=== PATIENT | female | born 1940 | race Caucasian/White ===

== ENCOUNTER 2021-11-23 13:26 | Inpatient (IN) ==
[2021-11-23] MEDS ORDERED: NS 0.9% 1000 ml BAG 1,000 ML IV ONE (13:37)
[2021-11-23 13:59] LABS: ABS Lymphocytes 1.3 10^3/ul (1.0-4.8); ABS Monocytes 0.4 10^3/ul (0-0.8); ABS Neutrophils 6.3 10^3/ul (1.5-7.7); Eosinophil % 0.3 %; Hematocrit 46 % (35-47); Hemoglobin 15.8 g/dL (12.0-16.0); Lymphocyte % 16.5 %; Mean Corpuscular HGB Conc 35 g/dL (31-36); Mean Corpuscular Hemoglobin 32 pg (27-31); Mean Corpuscular Volume 93 fL (80-97); Mean Platelet Volume 7.3 fL (7.4-10.4); Platelet Count 249 10^3/uL (150-450); Red Blood Count 4.91 10^6 /uL (3.70-4.87); Red Cell Distribution Width 14 % (10-15)
[2021-11-23] MEDS ORDERED: Iodixanol (CONTRAST) 320 MG/ML 100 ML SDV IV ONE (13:59)
[2021-11-23 14:09] LABS: Activated Partial Thrombo Time 32.8 seconds (26.0-38.0); INR 0.98 (0.86-1.15)
[2021-11-23] MEDS ORDERED: Labetalol IV 5 MG/ML 20 ml VIAL IV PUSH ONE (14:12)
[2021-11-23 14:17] LABS: Albumin 4.8 g/dL (3.2-5.2); CO2 Carbon Dioxide 23 mmol/L (22-32); Calcium 9.5 mg/dL (8.6-10.3); Chloride 105 mmol/L (101-111); Sodium 138 mmol/L (135-145)
[2021-11-23 14:23] LABS: ALT 37 U/L (7-52); Albumin/Globulin Ratio 1.7 (1-3); Alkaline Phosphatase 109 U/L (35-149); Blood Urea Nitrogen 16 mg/dL (6-24); Cholesterol 239 mg/dL; Globulin 2.9 g/dL (2-4); Glucose 144 mg/dL (70-100); HDL Cholesterol 58.7 mg/dL; LDL Cholesterol 150 mg/dL; Total Protein 7.7 g/dL (6.4-8.9); Triglycerides 153 mg/dL; eGFR CKD-EPI 83.6 (>60)
[2021-11-23 14:33] LABS: Troponin I 0.03 ng/mL (<0.03)
[2021-11-23 14:34] LABS: Anion Gap 10 mmol/L (2-11)
[2021-11-23 14:35] LABS: AST 31 U/L (13-39); Potassium 4.1 mmol/L (3.5-5.0)
[2021-11-23] MEDS ORDERED: Ondansetron 4 mg VIAL 2 MG/ML 2 ml VIAL IV PRN (16:23)
[2021-11-23 18:38] LABS: Troponin I 0.05 ng/mL (<0.03)
[2021-11-23] MEDS: Labetalol IV 5 MG/ML 20 ml VIAL IV PUSH PRN (21:28)
[2021-11-24] MEDS: Labetalol IV 5 MG/ML 20 ml VIAL IV PUSH PRN (11:07)
[2021-11-24] MEDS: Aspirin EC 325 mg TAB.EC PO SCH (11:17)
[2021-11-24] MEDS ORDERED: Lactated Ringers 1000 ml BAG 1,000 ML IV ONE (16:23)
[2021-11-25 05:58] LABS: ABS Eosinophils 0.1 10^3/ul (0-0.6); ABS Lymphocytes 1.7 10^3/ul (1.0-4.8); ABS Monocytes 0.5 10^3/ul (0-0.8); ABS Neutrophils 4.4 10^3/ul (1.5-7.7); Eosinophil % 1.4 %; Hematocrit 42 % (35-47); Hemoglobin 14.5 g/dL (12.0-16.0); Lymphocyte % 25.1 %; Mean Corpuscular HGB Conc 35 g/dL (31-36); Mean Corpuscular Hemoglobin 32 pg (27-31); Mean Corpuscular Volume 93 fL (80-97); Mean Platelet Volume 7.4 fL (7.4-10.4); Nucleated Red Blood Cells % 0.1; Platelet Count 255 10^3/uL (150-450); Red Cell Distribution Width 14 % (10-15); White Blood Count 6.6 10^3/uL (3.5-10.8)
[2021-11-25 06:40] LABS: Calcium 9.2 mg/dL (8.6-10.3); Potassium 3.5 mmol/L (3.5-5.0)
[2021-11-25 06:45] LABS: eGFR CKD-EPI 86.4 (>60)
[2021-11-25] MEDS: Aspirin EC 325 mg TAB.EC PO SCH (08:48)
[2021-11-25] MEDS ORDERED: Lactated Ringers 1000 ml BAG 1,000 ML IV SCH (16:00)
[2021-11-25] MEDS: Labetalol IV 5 MG/ML 20 ml VIAL IV PUSH PRN ×2 (17:16→21:51)
[2021-11-26 08:41] LABS: ABS Eosinophils 0.1 10^3/ul (0-0.6); ABS Lymphocytes 1.4 10^3/ul (1.0-4.8); ABS Monocytes 0.4 10^3/ul (0-0.8); ABS Neutrophils 4.5 10^3/ul (1.5-7.7); Eosinophil % 1.6 %; Hematocrit 43 % (35-47); Hemoglobin 14.4 g/dL (12.0-16.0); Lymphocyte % 22.4 %; Mean Corpuscular HGB Conc 34 g/dL (31-36); Mean Corpuscular Hemoglobin 32 pg (27-31); Mean Corpuscular Volume 95 fL (80-97); Mean Platelet Volume 7.1 fL (7.4-10.4); Platelet Count 251 10^3/uL (150-450); Red Blood Count 4.49 10^6 /uL (3.70-4.87); Red Cell Distribution Width 14 % (10-15); White Blood Count 6.5 10^3/uL (3.5-10.8)
[2021-11-26] MEDS: Aspirin EC 325 mg TAB.EC PO SCH (08:50)
[2021-11-26 08:57] LABS: Calcium 9.3 mg/dL (8.6-10.3)
[2021-11-27 08:18] LABS: ABS Eosinophils 0.1 10^3/ul (0-0.6); ABS Lymphocytes 1.6 10^3/ul (1.0-4.8); ABS Monocytes 0.4 10^3/ul (0-0.8); ABS Neutrophils 4.9 10^3/ul (1.5-7.7); Eosinophil % 1.8 %; Hematocrit 44 % (35-47); Hemoglobin 14.8 g/dL (12.0-16.0); Lymphocyte % 22.7 %; Mean Corpuscular HGB Conc 34 g/dL (31-36); Mean Corpuscular Hemoglobin 32 pg (27-31); Mean Corpuscular Volume 95 fL (80-97); Mean Platelet Volume 7.3 fL (7.4-10.4); Platelet Count 270 10^3/uL (150-450); Red Blood Count 4.59 10^6 /uL (3.70-4.87); Red Cell Distribution Width 14 % (10-15)
[2021-11-27] MEDS: Aspirin EC 325 mg TAB.EC PO SCH (08:34)
[2021-11-27 08:36] LABS: Calcium 9.4 mg/dL (8.6-10.3); Potassium 3.7 mmol/L (3.5-5.0); eGFR CKD-EPI 74.9 (>60)
[2021-11-27 11:53] VITALS: BP 160/76
== END 2021-11-27 12:17 | disposition home or self-care (01) | DRG 65 ==
LOC: EDHOLD 13:26 → ED 13:26 → SUATTDRO 16:23 → MEDTELE 11-24 17:07
PROVIDERS: ADMIT Student in an Organized Health Care Education/Training Program; ATTEND Hospitalist